=== PATIENT | female | born 1940 | race Caucasian/White ===

== ENCOUNTER 2017-07-12 06:48 | Day surgery (SDC) | payer MEDICARE, OTHER ==
[~2017-07-12] VITALS: Ht 154.9 cm; Wt 63.0 kg
--- NOTE | ~2017-07-12 | OP ---
PATIENT NAME: GRACE FERRARO MEDICAL RECORD: [id number] :38 LOCATION:[facility] ADMISSION DATE: SURGEON: BENJAMIN DUMONT MD DATE OF OPERATION: 07/12/2017 PREOPERATIVE DIAGNOSES: End-stage renal disease and dependence on hemodialysis. REFERRING PHYSICIAN: Aishwarya Aburto MD SURGEON: Benjamin Dumont MD ANESTHESIA: General with LMA per [employer]. OPERATION PERFORMED: Implantation of left forearm Propaten PTFE AV loop graft for dialysis access. PREOPERATIVE NOTE: Ms. Ferraro is a 76-year-old white female patient with end-stage renal disease, on chronic hemodialysis, now with a catheter. She needs long-term access. She is brought to the OR to put a graft in her left arm. I had actually planned to use an Artegraft this morning, but we do not have one in stock or available for me to use today, so I plan to go ahead with the PTFE. DESCRIPTION OF PROCEDURE: With the patient in the supine position under general anesthesia, the left arm was prepped and draped in a sterile manner. I examined her with Duplex ultrasound and decided upon a forearm loop graft between the brachial artery medially and the median cubital vein laterally. A transverse incision was made and these vessels were exposed and dissected, controlled with Silastic loops. A distal counter incision was made. I chose a 6-mm diameter straight [place] Propaten standard wall thickness PTFE graft, bevelled 1 in and anastomosed it end-to-side to the median antecubital vein using running 6-0 Prolene after flushing the vein proximally and distally with heparinized saline. The graft was placed in a subcutaneous tunnel and then shortened and beveled. The artery was occluded and opened and flushed with heparinized saline and then the graft was anastomosed end of graft to side of artery with running 6-0 Prolene and when the anastomoses were completed and the clamps released, excellent flow developed immediately within the new AV graft and the suture lines were hemostatic. The graft was not at all twisted or under any unnecessary tension and there were no kinks or other complications. The wounds were irrigated with Ancef/gentamicin solution and infiltrated in with 0.25% Marcaine without epinephrine. Wound closure was performed with interrupted inverted 3-0 Vicryl and Dermabond glue and 1/2 inch Steri-Strips, Maxorb Ag, Tegaderm, and Cavilon skin prep. The patient was awakened and taken to the recovery room with a functioning AV graft. She will be discharged to home today with a prescription for tramadol 50 mg, she can take one p.o. q.4 hours p.r.n. for pain. She will return to see me in my office in about 2 weeks. I expect we will be able to start using her new graft, hopefully in about 2 weeks depending on how much swelling she may have. NOTE: I did use 2 Hemoclips to close the communicating vein which connected the deep venous system with the median cubital. This will hopefully reduce postoperative edema. Blood loss during the procedure was trivial and unreplaced. All sponges, instruments, and needles were accounted for. No drain was used and no surgical OPERATIVE REPORT [id number] GRACE FERRARO specimen submitted for histopathology. TRANSINT:[id number] Voice Confirmation ID: [id number] DOCUMENT ID: [id number] BENJAMIN DUMONT MD at 2050 CC: AISHWARYA ABURTO MD [id number] DICTATION DATE: 07/12/17 1139 AGRICULTURAL ENGINEER: 07/12/17 1212 [facility] 07/12/17 [facility] [address] [place] [address]
[2017-07-12 07:46] LABS: BASOPHILS 0.2 % (0-2); EOSINOPHILS 6.9 % (0-7); HEMATOCRIT 39.7 % (36.0-48.0); HEMOGLOBIN 13.1 g/dL (12-16); IMMATURE GRANULOCYTES 0.3 % (0-5); LYMPHOCYTES 21.4 % (15-50); MCH 29.5 pg (26.0-34.0); MCV 89.4 fL (80.0-100.0); MEAN PLATELET VOLUME 10.6 fL (7.4-10.4); MONOCYTES 5.3 % (2-11); NEUTROPHILS 65.9 % (40-80); PLATELET COUNT 151 10x3/uL (130-400); RBC 4.44 10x6/uL (4.00-5.40); RDW 14.9 % (11.5-14.5); WBC 6.3 10x3/uL (4.8-10.8)
[2017-07-12] MEDS ORDERED: NORVASC10 MG PO (07:51)
[2017-07-12] MEDS ORDERED: TIROSINT88 MCG PO (07:51)
[2017-07-12] MEDS ORDERED: COREG6.25 MG PO (07:51)
[2017-07-12] MEDS ORDERED: LIPITOR20 MG PO (07:52)
[2017-07-12] MEDS ORDERED: ALENDRONATE SODI5 MG PO (07:52)
[2017-07-12] MEDS ORDERED: BAYER CHEWABLE81 MG PO (07:53)
[2017-07-12 07:54] VITALS: Ht 154.9 cm; Wt 63.0 kg
[2017-07-12 08:01] LABS: APTT 28.9 SECONDS (22.8-39.4); INR 0.97 (0.85-1.17); PROTIME 12.5 SECONDS (11.6-15.0)
[2017-07-12 08:08] LABS: ANION GAP 11.7 mmol/L (8-16); CALCIUM 8.7 mg/dL (8.5-10.1); CREATININE - SERUM 2.3 mg/dL (0.6-1.3); POTASSIUM - SERUM 3.7 mmol/L (3.5-5.1)
[2017-07-12] MEDS ORDERED: ULTRAM50 MG PO (11:22)
== END 2017-07-12 14:30 | disposition home or self-care (01) ==
LOC: D.OPS 06:48
PROVIDERS: Internal Medicine Nephrology
DX: N18.6 End stage renal disease (principal); Z99.2 Dependence on renal dialysis; Z01.812 Encounter for preprocedural laboratory examination